=== PATIENT | female | born 1975 | race Two or more races ===

== ENCOUNTER 2019-09-12 16:53 | Emergency (ER) | payer OTHER ==
[~2019-09-12] VITALS: Ht 165.1 cm; Wt 99.8 kg
[~2019-09-12 16:53] MED LIST: FLOXIN OTIC10 DROP LEFT EAR; IBUPROFEN800 MG ORAL; NKM
--- NOTE | 2019-09-12 17:00 | NUR ---
ED Nurse Note: Pt ambulated to ED for suture removal that was done last week. Pt is AOx4, VSS, on RA, NAD.
--- NOTE | 2019-09-12 17:07 | NUR ---
ED Nurse Note: Suture removal performed by ERPA.
[2019-09-12 17:15] VITALS: BP 140/83
--- NOTE | 2019-09-12 17:33 | Emergency Room Report ---
History of Present Illness General Chief Complaint: Wound Recheck/Suture Removal Source: Patient Present Illness HPI 44-year-old female with no significant medical history here requesting suture removal of her hand. Patient reported with initially diagnosed with a dog bite and sutures were placed in [place] 1 week ago. Patient finished antibiotics. Denies any fever and chills or pus drainage. Total of 4 sutures observed. Denies other injuries. Allergies: Coded Allergies: No Known Allergies (Unverified , 05/30/15) Patient History Past Medical History: see triage record Past Surgical History: unable to obtain Pertinent Family History: none Last Menstrual Period: 08/13/2019 Now: No Immunizations: UTD Reviewed Nursing Documentation: PMH: Agreed; PSxH: Agreed Nursing Documentation-PMH Past Medical History: No Stated History Review of Systems All Other Systems: negative except mentioned in HPI Physical Exam Vital Signs Date Time Temp Pulse Resp B/P (MAP) Pulse Ox O2 Delivery O2 Flow Rate FiO2 09/12/19 16:59 97.9 81 16 140/83 (102) 94 Room Air Sp02 EP Interpretation: reviewed, normal General Appearance: well appearing, no apparent distress Head: normocephalic, atraumatic ENT: hearing grossly normal, normal voice Neck: full range of motion, supple Respiratory: lungs clear, no respiratory distress, speaking full sentences Cardiovascular #1: regular rate, rhythm, no murmur Cardiovascular #2: 2+ radial (R), 2+ radial (L) Gastrointestinal: soft Rectal: deferred Musculoskeletal: gait/station normal Neurologic: alert, normal gait Psychiatric: mood/affect normal Skin: other - Healed laceration with sutures placed in the right hand Lymphatic: no adenopathy Medical Decision Making PA Attestation All my diagnosis and treatment plans were reviewed ad discussed with my supervising physician Dr. Can Diagnostic Impression: Primary Impression: Encounter for removal of sutures ER Course 44-year-old female with no significant medical history here requesting suture removal of her hand. Patient reported with initially diagnosed with a dog bite and sutures were placed in [place] 1 week ago. Patient finished antibiotics. Denies any fever and chills or pus drainage. Total of 4 sutures observed. Denies other injuries. Ddx considered but are not limited to : Superficial laceration, deep laceration , tendon involvement with laceration, laceration with foreign body Vital signs: are WNL, pt. is afebrile H&PE are most consistent with: Encounter for removal of sutures ORDERS: None ED INTERVENTIONS: Total of 4 sutures were removed without any complication and Steri-Strips applied DISCHARGE: At this time pt. is stable for d/c to home. Will provide printed patient care instructions, and any necessary prescriptions. Care plan and follow up instructions have been discussed with the patient prior to discharge. Last Vital Signs Date Time Temp Pulse Resp B/P (MAP) Pulse Ox O2 Delivery O2 Flow Rate FiO2 09/12/19 17:15 97.9 74 16 140/83 94 Room Air Status: improved Disposition: HOME, SELF-CARE Condition: Stable Referrals: NON PHYSICIAN (PCP) Patient Instructions: Wound Check Renard Medeiros Sep 12, 2019 17:33
[2019-09-12 17:43] VITALS: BP 138/82
--- NOTE | 2019-09-12 17:43 | NUR ---
ER DISCHARGE NOTE: Pt is cleared to be discharged per ERMD. Pt is AOx4, VSS, on RA. pt was given dc and prescription instructions, pt was able to verbalize understanding, pt id band removed. pt is able to ambulate with steady gait. pt took all belongings.
== END 2019-09-12 17:43 | disposition home or self-care (01) ==
LOC: EMR 17:05
DX: S61.411D Laceration without foreign body of right hand, subsequent encounter (principal); W54.0XXD Bitten by dog, subsequent encounter
CPT/HCPCS: 99282